=== PATIENT | male | born 1980 | race Caucasian/White ===

== ENCOUNTER 2024-03-23 18:08 | Emergency (ER) | payer OTHER ==
[~2024-03-23] VITALS: Ht 182.9 cm; Wt 117.9 kg
[2024-03-23 18:49] VITALS: BP 146/86; PULSE 92; RESP 16; TEMP 97.5; O2SAT 98
[2024-03-23] MEDS ORDERED: CEPH-588 PO (19:46)
[2024-03-23] MEDS ORDERED: IBUP-2213 PO (19:46)
[2024-03-23] MEDS ORDERED: BACTO TP (19:46)
[2024-03-23 20:15] VITALS: BP 132/80; PULSE 72; RESP 16; TEMP 97.9; O2SAT 97
== END 2024-03-23 20:15 | disposition home or self-care (01) ==
LOC: MED 18:08
DX: L03.316 Cellulitis of umbilicus (principal); Z79.899 Other long term (current) drug therapy
CPT/HCPCS: 99283